=== PATIENT | male | born 1950 | race Two or more races ===

== ENCOUNTER → 2025-07-04 | Outpatient (CLI) | payer MEDICARE, SELFPAY ==
--- NOTE | 2025-07-04 | XR_ITS ---
Examination: Foot, right, 3 views Technique: AP, oblique, lateral views foot, 3 views Date and time of exam: July 04, 2025 1147 hours INDICATIONS: Foot swelling and pain beginning one month ago. 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 Ossification in the plantar fascia
== END | disposition home or self-care (01) ==
DX: M21.611 Bunion of right foot (principal); M19.071 Primary osteoarthritis, right ankle and foot; M77.31 Calcaneal spur, right foot; M25.871 Other specified joint disorders, right ankle and foot
CPT/HCPCS: 73630